=== PATIENT | female | born 1970 | race Caucasian/White ===

== ENCOUNTER 2020-01-27 04:25 | Day surgery (SDC) | payer OTHER ==
[2020-01-25 15:21] VITALS: BMI 42.2
--- NOTE | 2020-01-27 12:21 | HP ---
History & Physical Update - History History: No Change - Physical Physical: No Change - Assessment Assessment: No Change - Plan Plan: No Change (H&P reviwed , no changes, for hysteroscopy D$C)
[2020-01-27] MEDS ORDERED: MIDAZOLAM HCL 2 MG/2 ML SINGLE DOSE VIAL ONE (12:59)
[2020-01-27] MEDS ORDERED: PROPOFOL 20 ML ONE (13:56)
[2020-01-27] MEDS ORDERED: ONDANSETRON 4 MG/2 ML VIAL IVPUSH PRN ×2 (14:08→14:51)
[2020-01-27] MEDS ORDERED: oxyCODONE HCL 5 MG TABLET PO PRN ×3 (14:08→14:51)
[2020-01-27] MEDS ORDERED: LACTATED RINGERS SOLUTION 1,000 ML IV SCH (14:15)
[2020-01-27] MEDS ORDERED: IBUPROFEN 600 MG TABLET (FP) PO PRN (14:51)
[2020-01-27] MEDS ORDERED: IBUPROFEN 800 MG/8 ML IJ IVPB PRN (14:51)
--- NOTE | 2020-01-27 14:57 | OP ---
Operative Note - Note: Operative Date: 01/27/20 Operation: PMB, thicken EM Findings: irregular EM , with multiple polypoid masses Surgeon: Gurdeep Carpio Anesthesia: General Specimens Removed: EMC, em polypectomy Estimated Blood Loss (mls): 50 Drains & Tubes with Location: none Blood Volume Replaced (mls): 0 Operative Report Dictated: Yes
[2020-01-27] MEDS ORDERED: ELECTROLYTE-148 SOLN 1,000 ML IV SCH (15:00)
[2020-01-27] MEDS ORDERED: IBUPROFEN 600 MG TABLET (FP) PO ONE (16:38)
[2020-01-27 17:20] VITALS: BP 121/65; PULSE 72; TEMP 97.8
--- NOTE | 2020-01-28 11:36 | OP ---
DATE OF OPERATION: 01/27/2020 PREOPERATIVE DIAGNOSES: Postmenopausal bleeding, thickened endometrium. POSTOPERATIVE DIAGNOSES: Postmenopausal bleeding, thickened endometrium, rule out endometrial malignancy. SURGEON: Gurdeep Carpio MD ANESTHESIA: General. ESTIMATED BLOOD LOSS: 50 mL. PROCEDURE: Hysteroscopy, dilation and curettage, and polypectomy. OPERATION: Patient was taken to the operating room. Had adequate general anesthesia in dorsal lithotomy position. Examination under anesthesia revealed external genitalia to be normal. Vagina was normal. Cervix was clean, no gross lesion, and cervix was free and mobile. The uterus was prominent, anteverted. Adnexa: No masses were palpable. Then with a weighted speculum in the vagina anterior lip of cervix was grasped with single-tooth tenaculum. Uterine cavity was sounded to 10 cm. Then hysteroscope was introduced into the uterine cavity. Endocervical canal appeared to be normal. Endometrium had multiple polypoid masses and irregular endometrium. Both cornual regions were identified. The polypoid masses were all hypervascular and appeared to be abnormal polypoid masses in the uterus. Then the hysteroscope was withdrawn. Endometrium was curetted. Large amount of tissue was obtained which was suspicious for endometrial carcinoma. Patient tolerated procedure well, left the OR in good condition. Kayla [id number]
--- NOTE | 2020-01-31 16:19 | PATH ---
Surgical Pathology Report Patient Name: DARRON MAE [facility]. Rec. #: [id number] /Age/Gender: 1970 (Age: 49) / F Account: [id number] Location: [facility] SURGICAL Taken: 01/27/2020 Received: 01/28/2020 Reported: 01/31/2020 Physicians: Gurdeep Carpio M.D. Specimen(s) Received ENDOMETRIAL CURETTINGS Clinical History Thickened endometrium, postmenopausal bleeding Final Diagnosis ENDOMETRIAL CURETTINGS , DILATION AND CURETTAGE: ENDOMETRIOID CARCINOMA, FIGO GRADE 1 OF 3. Comment: Case seen in intradepartmental review with consensus on diagnosis. Additional studies for Mismatch repair proteins (MMR) are pending and will be reported separately as an addendum. Case discussed with Dr. Carpio, 01/31/20. Electronically Signed Elyse Epps M.D. Addendum Reported: 02/03/2020 Addendum Diagnosis Immunohistochemical stains for MisMatch Repair Protein Analysis performed at [facility] in [place], [place] ([id number] ) and interpreted at [facility] show the following: RESULTS: HMLH-1 LOSS OF NUCLEAR EXPRESSION HMSH-2 INTACT NUCLEAR EXPRESSION HMSH-6 INTACT NUCLEAR EXPRESSION PMS2 LOSS OF NUCLEAR EXPRESSION INTERPRETATION: Loss of nuclear expression of MLH1 and PMS2. MLH1 promoter methylation pending, findings will be reported separately. Elyse Epps M.D. Addendum Reported: 02/22/2020 Addendum Diagnosis MLH1 METHYLATION ANALYSIS performed and interpreted at [facility] (Specimen# [id number]) shows the following: RESULT: Positive INTERPRETATION: Hypermethylation of the MLH1 promoter was detected in the provided specimen. Comment: Presence of MLH1 methylation suggests that the tumor is sporadic and germline evaluation is probably not indicated. Suggest clinical correlation. See [facility] report for additional details. Report faxed to Dr. Rincon on 02/18/20. Elyse Epps M.D. Gross Description Received in formalin labeled "endometrial curettings," is a 6.0 x 4.5 x 0.6 cm aggregate of martinez-brown soft tissue fragments admixed with blood clot. The formalin is filtered and the specimen is entirely submitted in 8 cassettes. DL/01/28/2020 saudi01/28/2020
== END 2020-01-27 17:22 | disposition home or self-care (01) ==
LOC: JASU-SURG 04:25
PROVIDERS: ATTEND Obstetrics & Gynecology
PROC: 0UDB7ZX Extraction of Endometrium, Via Natural or Artificial Opening, Diagnostic (ICD-10-PCS; principal; 2020-01-27 14:00)
PROC: 0UJD8ZZ Inspection of Uterus and Cervix, Via Natural or Artificial Opening Endoscopic (ICD-10-PCS; 2020-01-27 14:00)
DX: C54.1 Malignant neoplasm of endometrium (principal); N95.0 Postmenopausal bleeding; E66.01 Morbid (severe) obesity due to excess calories; E11.9 Type 2 diabetes mellitus without complications; Z79.84 Long term (current) use of oral hypoglycemic drugs
CPT/HCPCS: 36415; 82962; 84703; 86850; 86900; 86901; 88305-TC; 94760

== ENCOUNTER 2021-09-03 16:10 | Emergency (ER) | payer BC, OTHER ==
[2021-09-03 16:23] VITALS: BP 139/79; PULSE 71; TEMP 97.9; BMI 39.8
[2021-09-03] MEDS ORDERED: methylPREDNISolone NA SUCC 125 MG/2 ML VIAL IVPUSH ONE (19:47)
[2021-09-03] MEDS ORDERED: ALBUTEROL SO4 2.5/IPRATROPIUM 0.5 INH SOL 3 ML VIAL.NEB. NEB ONE ×2 (19:47→20:15)
[2021-09-03] MEDS ORDERED: methylPREDNISolone NA SUCC 125 MG/2 ML VIAL ONE (20:15)
[2021-09-03 20:30] LABS: BASO % 0.8 % (0-2.0); EOS % 1.6 % (0-4.5); HEMATOCRIT 37.7 % (32.4-45.2); HEMOGLOBIN 12.4 GM/dL (10.7-15.3); LYMPH % 22.5 % (8-40); MCH 24.4 pg (25.7-33.7); MEAN PLT VOLUME 8.5 fl (7.5-11.1); MONO % 5.9 % (3.8-10.2); NEUT % 69.2 % (42.8-82.8); PLATELET COUNT 236 10^3/uL (134-434); RBC 5.09 M/mm3 (3.60-5.2); RDW 15.7 % (11.6-15.6); WHITE BLOOD COUNT 10.7 K/mm3 (4.0-10.0)
[2021-09-03 20:53] LABS: ALBUMIN 3.7 g/dl (3.4-5.0); CALCIUM 9.4 mg/dL (8.5-10.1)
[2021-09-03 20:54] LABS: BLOOD UREA NITROGEN 12.6 mg/dL (7-18)
[2021-09-03 20:57] LABS: CREATININE 0.7 mg/dL (0.55-1.3)
[2021-09-03 20:58] LABS: TOT PROT 7.2 g/dl (6.4-8.2)
[2021-09-03 20:59] LABS: BILIRUBIN,TOTAL 0.6 mg/dL (0.2-1)
== END 2021-09-04 00:35 | disposition home or self-care (01) ==
LOC: JER 16:10
PROC: 3E033GC Introduction of Other Therapeutic Substance into Peripheral Vein, Percutaneous Approach (ICD-10-PCS; principal; 2021-09-03)
PROC: 3E0F7GC Introduction of Other Therapeutic Substance into Respiratory Tract, Via Natural or Artificial Opening (ICD-10-PCS; 2021-09-03)
DX: J45.909 Unspecified asthma, uncomplicated (principal); R07.89 Other chest pain
CPT/HCPCS: 36415; 71046-TC-FY; 80053; 84484; 85025; 93005; 93010; 99285-25

== ENCOUNTER 2021-10-29 19:36 | Emergency (ER) | payer OTHER ==
[2021-10-29 19:49] VITALS: BP 141/80; PULSE 72; TEMP 98.6; BMI 41.2
[2021-10-29] MEDS ORDERED: KETOROLAC TROMETHAMINE 15 MG/ML VIAL IM ONE (20:25)
[2021-10-29] MEDS ORDERED: METHOCARBAMOL 500 MG TABLET PO ONE (20:25)
[2021-10-29] MEDS ORDERED: KETOROLAC TROMETHAMINE 15 MG/ML VIAL ONE (20:27)
[2021-10-29] MEDS ORDERED: METHOCARBAMOL 500 MG TABLET ONE (20:27)
== END 2021-10-29 20:34 | disposition home or self-care (01) ==
LOC: JERFT 19:36
PROC: 3E0233Z Introduction of Anti-inflammatory into Muscle, Percutaneous Approach (ICD-10-PCS; principal; 2021-10-29)
DX: M16.11 Unilateral primary osteoarthritis, right hip (principal); M25.551 Pain in right hip
CPT/HCPCS: 99284-25

== ENCOUNTER 2022-07-10 10:07 | Emergency (ER) | payer OTHER ==
[2022-07-10 10:44] VITALS: BP 132/85; PULSE 72; RESP 18; TEMP 98.3; BMI 43.2
== END 2022-07-10 11:24 | disposition home or self-care (01) ==
LOC: JER 10:07
DX: J06.9 Acute upper respiratory infection, unspecified (principal)
CPT/HCPCS: 0241U-QW; 71046-TC-FY; 99284-25

== ENCOUNTER 2023-07-21 16:19 | Emergency (ER) | payer OTHER ==
[2023-07-21 16:25] VITALS: BP 123/60; PULSE 64; RESP 20; TEMP 98.3; BMI 30.7
[2023-07-21 17:47] LABS: BASO % 0.9 % (0-2.0); EOS % 2.5 % (0-4.5); HEMATOCRIT 39.8 % (32.4-45.2); HEMOGLOBIN 13.2 GM/dL (10.7-15.3); LYMPH % 21.1 % (8-40); MCH 25.3 pg (25.7-33.7); MCHC 33.3 g/dl (32.0-36.0); MEAN CELL VOLUME 76.1 fl (80-96); MEAN PLT VOLUME 8.5 fl (7.5-11.1); MONO % 9.1 % (3.8-10.2); NEUT % 66.4 % (42.8-82.8); PLATELET COUNT 226 10^3/uL (134-434); RBC 5.22 M/mm3 (3.60-5.2); RDW 14.3 % (11.6-15.6); WHITE BLOOD COUNT 8.3 K/mm3 (4.0-10.0)
[2023-07-21 17:53] LABS: INR 1.09 (0.83-1.09); PROTHROMBIN TIME (PATIENT) 12.6 SEC (9.7-13.0)
[2023-07-21 17:56] LABS: ACTIVATED PTT 32.9 SECONDS (25.2-36.5)
[2023-07-21] MEDS ORDERED: KETOROLAC TROMETHAMINE 15 MG/ML VIAL IVPUSH ONE (17:58)
[2023-07-21 18:03] LABS: POTASSIUM 3.7 mmol/L (3.5-5.1)
[2023-07-21] MEDS ORDERED: KETOROLAC TROMETHAMINE 15 MG/ML VIAL ONE (18:04)
[2023-07-21 18:05] LABS: ALBUMIN 3.7 g/dl (3.4-5.0)
[2023-07-21 18:06] LABS: BLOOD UREA NITROGEN 23.8 mg/dL (7-18)
[2023-07-21 18:08] LABS: CREATININE 0.7 mg/dL (0.55-1.3)
[2023-07-21 18:10] LABS: BILIRUBIN,TOTAL 0.8 mg/dL (0.2-1); TOT PROT 7.3 g/dl (6.4-8.2)
== END 2023-07-21 19:31 | disposition home or self-care (01) ==
LOC: JER 16:19
PROC: 3E0333Z Introduction of Anti-inflammatory into Peripheral Vein, Percutaneous Approach (ICD-10-PCS; principal; 2023-07-21)
DX: R07.89 Other chest pain (principal)
CPT/HCPCS: 36415; 80053; 83690; 84484; 85025; 85610; 85730; 93005; 93010; 99284-25

== ENCOUNTER 2023-11-07 09:49 | Emergency (ER) | payer OTHER ==
[2023-11-07 10:00] VITALS: BP 127/60; PULSE 53; RESP 18; TEMP 98.2; BMI 30.7
[2023-11-07] MEDS ORDERED: guaiFENesin/D-METHORPHAN HB 10 ML UNIT-DOSE CUPS ONE (11:46)
[2023-11-07 11:47] LABS: BASO % 0.6 % (0-2.0); EOS % 1.5 % (0-4.5); HEMATOCRIT 37.1 % (32.4-45.2); HEMOGLOBIN 12.5 GM/dL (10.7-15.3); LYMPH % 24.9 % (8-40); MCH 25.4 pg (25.7-33.7); MCHC 33.6 g/dl (32.0-36.0); MEAN CELL VOLUME 75.5 fl (80-96); MEAN PLT VOLUME 8.2 fl (7.5-11.1); MONO % 5.9 % (3.8-10.2); NEUT % 67.1 % (42.8-82.8); PLATELET COUNT 249 10^3/uL (134-434); RBC 4.92 M/mm3 (3.60-5.2); RDW 14.5 % (11.6-15.6); WHITE BLOOD COUNT 8.6 K/mm3 (4.0-10.0)
[2023-11-07] MEDS: guaiFENesin/D-METHORPHAN HB 10 ML UNIT-DOSE CUPS PO ONE (11:48)
[2023-11-07 12:09] LABS: POTASSIUM 3.8 mmol/L (3.5-5.1)
[2023-11-07 12:11] LABS: CALCIUM 9.1 mg/dL (8.5-10.1)
[2023-11-07 12:12] LABS: ALBUMIN 3.8 g/dl (3.4-5.0); BLOOD UREA NITROGEN 23.1 mg/dL (7-18)
[2023-11-07 12:15] LABS: CREATININE 0.6 mg/dL (0.55-1.3)
[2023-11-07 12:16] LABS: BILIRUBIN,TOTAL 0.8 mg/dL (0.2-1)
[2023-11-07 12:17] LABS: TOT PROT 6.8 g/dl (6.4-8.2)
== END 2023-11-07 13:20 | disposition home or self-care (01) ==
LOC: JER 09:49
DX: R05.9 Cough, unspecified (principal); R09.81 Nasal congestion; R07.89 Other chest pain; R09.82 Postnasal drip; J40 Bronchitis, not specified as acute or chronic
CPT/HCPCS: 36415; 71046-TC-FY; 80053; 84484; 85025; 93005; 93010; 99285-25

== ENCOUNTER 2024-10-21 19:41 | Emergency (ER) | payer OTHER ==
[2024-10-21 19:58] VITALS: BP 116/66; PULSE 66; RESP 20; TEMP 99.4; BMI 27.2
== END 2024-10-21 23:12 | disposition home or self-care (01) ==
LOC: JERFT 19:41
DX: J40 Bronchitis, not specified as acute or chronic (principal); R05.9 Cough, unspecified; R09.3 Abnormal sputum; R09.81 Nasal congestion
CPT/HCPCS: 0241U-QW; 71046-TC-FY; 99284-25